=== PATIENT | female | born 1965 | race Caucasian/White ===

== ENCOUNTER 2017-12-08 08:43 | Day surgery (SDC) | payer OTHER ==
[~2017-12-08] VITALS: Ht 170.2 cm; Wt 68.6 kg
[~2017-12-08 08:43] MED LIST: PENVK500; Percocet 5-3251 EACH PO; [UNRECOGNIZED DRUG - OTHER]
== END 2017-12-08 11:35 | disposition home or self-care (01) ==
LOC: ORSCSDS 08:43
PROVIDERS: Internal Medicine Gastroenterology
PROC: 0DJD8ZZ Inspection of Lower Intestinal Tract, Via Natural or Artificial Opening Endoscopic (ICD-10-PCS; principal; 2017-12-08 10:00)
DX: Z12.11 Encounter for screening for malignant neoplasm of colon (principal); Z80.0 Family history of malignant neoplasm of digestive organs; K57.30 Diverticulosis of large intestine without perforation or abscess without bleeding; Z87.891 Personal history of nicotine dependence
CPT/HCPCS: 74176; J7120

== ENCOUNTER 2021-12-26 17:14 | Emergency (ER) | payer OTHER ==
[~2021-12-26] VITALS: Ht 170.2 cm; Wt 77.1 kg
[2021-12-26] MEDS ORDERED: AMOCLA875 PO (19:29)
== END 2021-12-26 19:49 | disposition home or self-care (01) ==
LOC: ER 17:14
DX: K57.92 Diverticulitis of intestine, part unspecified, without perforation or abscess without bleeding (principal); K57.30 Diverticulosis of large intestine without perforation or abscess without bleeding; Z88.5 Allergy status to narcotic agent; Z87.891 Personal history of nicotine dependence
CPT/HCPCS: 36415; 74177; 99284-25; A9270; Q9967

== ENCOUNTER 2024-02-09 05:40 | Emergency (ER) | payer OTHER ==
[~2024-02-09] VITALS: Ht 170.2 cm; Wt 72.6 kg
[~2024-02-09 05:40] MED LIST changes: +AMOCLA875 PO
[2024-02-09] MEDS ORDERED: OxyCODONE HCL 5 MG TAB PO ONE (06:15)
[2024-02-09] MEDS ORDERED: Diazepam 2 MG Tab PO ONE (07:10)
[2024-02-09 09:01] VITALS: BP 159/87
== END 2024-02-09 09:03 | disposition home or self-care (01) ==
LOC: ER 05:40
DX: M54.2 Cervicalgia (principal); Z87.891 Personal history of nicotine dependence
CPT/HCPCS: 99283; A9270